=== PATIENT | female | born 1990 | race Caucasian/White ===

== ENCOUNTER 2021-11-09 02:55 | Emergency (ER) | payer OTHER ==
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
[2021-11-09 05:53] VITALS: BP 116/83
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
--- NOTE | 2021-11-09 07:33 | CT Report ---
PROCEDURE: CERVICAL SPINE WO INDICATIONS: etoh/neck pain TECHNIQUE: Noncontrast 3 mm thick sections acquired from the skull base to the T4 level. Sagittal and coronal r eformats were then constructed. For radiation dose reduction, the following was used: automated exp osure control, adjustment of mA and/or kV according to patient size. COMPARISON: None. FINDINGS: Image quality: Excellent. Bones: No fractures or dislocations. Visualized superior ribs are intact. Soft tissues: Prevertebral soft tissues are normal in thickness. No paravertebral hematomas. No ap ical pneumothoraces. IMPRESSION: No CT evidence of acute traumatic cervical spine injury. No significant change from preliminary repor t. Reviewed by: Gilson Porter MD on 11/09/2021 7:32 AM PDT Approved by: Gilson Porter MD on 11/09/2021 7:32 AM PDT Station ID: [id number]
== END 2021-11-09 05:50 | disposition home or self-care (01) ==
LOC: ED 02:55
DX: S09.90XA Unspecified injury of head, initial encounter (principal); Y04.2XXA Assault by strike against or bumped into by another person, initial encounter; Y93.89 Activity, other specified; Y92.511 Restaurant or cafe as the place of occurrence of the external cause
CPT/HCPCS: 99284